=== PATIENT | male | born 1955 | race Caucasian/White ===

== ENCOUNTER → 2019-03-30 | Day surgery (SDC) | payer OTHER ==
[2019-03-14 10:06] LABS: BASOPHILS # (AUTO) 0.1 (0.0-0.1); BASOPHILS % 1.1 % (0.0-1.0); EOSINOPHILS # (AUTO) 0.3 (0.0-0.4); EOSINOPHILS % 3.4 % (0.0-6.0); HEMATOCRIT 42.2 % (38.2-49.6); HEMOGLOBIN 14.2 g/dL (14.0-18.0); LYMPHOCYTES # (AUTO) 1.4 (1.0-3.2); LYMPHOCYTES % 19.3 % (18.0-39.1); MEAN CORPUSCULAR HEMOGLOBIN 28.9 pg (28-32); MEAN CORPUSCULAR HGB CONC 33.6 g/dL (31-35); MEAN CORPUSCULAR VOLUME 85.9 fL (81-99); MONOCYTES # (AUTO) 0.7 (0.2-0.8); NEUTROPHILS # (AUTO) 4.8 (2.1-6.9); NEUTROPHILS % 66.4 % (38.7-80.0); PLATELET COUNT 221 x10e3/uL (140-360); RED BLOOD COUNT 4.91 x10e6/uL (4.3-5.7); RED CELL DISTRIBUTION WIDTH 15.2 % (11.7-14.4)
[~2019-03-30] MED LIST: AMLODIPINE BESY10 MG PO; ASPIR 8181 MG PO; ATENOLOL-CHLOR1 EACH PO; ATORVASTATIN CA40 MG PO; CLOPIDOGREL75 MG PO; FENTANYL CITRATE/PF 100MCG/2 ML INJ ONE; GLIPIZIDE-METF1 EAC2 PO; INVOKANA PO; JARDIANCE PO; LISINOPRIL40 MG PO; LOVENOX60 MG/0.6 SC; METFORMIN HCL500 MG PO; METOPROLOL SUCC50 MG PO; MIDAZOLAM HCL 2 MG/2 ML VIAL ONE; NORCO 7.5-3251 EACH PO; PROPOFOL IV EMULSION 10 MG/ML 50 ML VIAL ONE
--- OUTSIDE RECORDS SUMMARY | 2019-03-30 08:26 | XMS REPORT | Encounter Summary ---
Author Organization Unknown Address [address] [place] [address] Phone [phone] Care Team Providers Care Theatre Director Name Role Phone Dr. Kareem Park 3 [phone] Fernando Mccray MD 82 [phone] Patrick Macias MD 107 [phone] Ale Moreno OD 111 [phone] Reason for Visit Diabetes mellitus; Hypertensive disorder; Hyperlipidemia Instructions 1. Essential hypertension amlodipine 5 mg tablet lisinopril 40 mg tablet metoprolol succinate ER 50 mg tablet,extended release 24 hr CMP, serum or plasma 2. Type 2 diabetes mellitus Jardiance 10 mg tablet metformin 500 mg tablet HbA1c (hemoglobin A1c), blood 3. Hyperlipidemia atorvastatin 40 mg tablet high cholesterol: care instructions lipid panel, serum 4. Hepatitis C screening hepatitis C virus RNA, quant, PCR, serum or plasma 5. Morbid obesity Discussion Note: None recorded. Plan of Care Reminders Provider Appointments Return to Office on or around 06/18/2019 Kareem Kam MD Lab Hepatitis C Virus RNA, Quant, PCR, Serum or Plasma 12/15/2018 [facility] CMP, Serum or Plasma 12/15/2018 [facility] HbA1C (Hemoglobin a1C), Blood 12/15/2018 [facility] Lipid Panel, Serum 12/15/2018 [facility] Referral None recorded. Procedures None recorded. Surgeries None recorded. Imaging None recorded. Medications Name Start Date amlodipine 5 mg tablet Take 1 tablet twice a day by oral route as directed for 90 days. aspirin 81 mg tablet,delayed release Take 1 tablet every day by oral route. atorvastatin 40 mg tablet TAKE ONE (1) TABLET(S) BY MOUTH EVERY DAY. clopidogrel 75 mg tablet Take 1 tablet every day by oral route. clotrimazole-betamethasone 1 %-0.05 % topical cream APPLY TO THE AFFECTED AND SURROUNDING AREAS OF SKIN BY TOPICAL ROUTE 2 TIMES PER DAY IN THE MORNING AND EVENING FOR 2 WEEKS Jardiance 10 mg tablet TAKE ONE (1) TABLET(S) BY MOUTH ONCE A DAY DIRECTED. lisinopril 40 mg tablet TAKE ONE (1) TABLET(S) BY MOUTH TWICE A DAY. metformin 500 mg tablet TAKE ONE (1) TABLET(S) BY MOUTH TWICE A DAY. metoprolol succinate ER 50 mg tablet,extended release 24 hr TAKE ONE TABLET BY MOUTH ONCE A DAY metronidazole 1 % topical gel qd OneTouch Delica Lancets 33 gauge use twice daily OneTouch Ultra Blue Test Strip use twice daily Medications Administered None recorded. Vitals Height Weight BMI Blood Pressure 5 ft 7 in 279.2 lbs 43.7 kg/m2 (1) 146/72 mm[Hg] (2) 138/72 mm[Hg] Lab Results None recorded. Allergies Code Code System Name Reaction Severity Status Onset NKDA Problems Name Status Onset Date Source Coronary Arteriosclerosis Active 08/12/2016 Stented Coronary Artery Active 09/08/2017 Gout Active 12/15/2018 Diabetes Mellitus Active Hyperlipidemia Active Hypertensive Disorder Active Procedures Date Name Performed by 06/07/2015 Orthopedic Surgery Information not available 06/07/2014 Knee Replacement Information not available Cholecystectomy (Gall Bladder Removal) Information not available Colonoscopy Information not available Vaccine List Vaccine Type Influenza, injectable, MDCK, quadrivalent 02/11/20170.5 mL influenza, injectable, quadrivalent, preservative free 03/10/20180.5 mL influenza, seasonal, injectable 05/04/20160.5 mL influenza, unspecified formulation 06/07/2014 pneumococcal polysaccharide PPV23 06/09/20170.5 mL Tdap 09/06/2015 zoster 06/09/20170.65 mL zoster subunit 06/10/20180.5 mL Social History Smoking Status Former Smoker (1/2 PPD) Past Encounters 12/15/2018 Essential Hypertension; Type 2 Diabetes Mellitus; Hyperlipidemia; Hepatitis C Screening; Morbid Obesity Kareem Kam MD: [address] [place] [id number], Ph. History of Present Illness Note:F/u on chronic conditions. Needs refills. Compliant with meds. Non compliant with diet or exercise. Glucose readings at home 80s-130s fasting. BPs at home 140s/70s. No side effects with meds. No new concerns. Review of Systems Comprehensive General Adult ROS Reported By: Patient Constitutional: Constitutional: no fever Eyes: Eyes: no vision change ENMT: Ears: no ear pain. Nose: no sinus problems. Mouth/Throat: no sore throat Cardiovascular: Cardiovascular: no chest pain, no palpitations, no lightheadedness Respiratory: Respiratory: no cough, no wheezing, no shortness of breath Gastrointestinal: Gastrointestinal: no abdominal pain, no nausea, no vomiting, no constipation, no diarrhea Musculoskeletal: Musculoskeletal: no muscle aches, no swelling in the extremities Integumentary: Skin: no rashes Neurologic: Neurologic: no loss of consciousness, no headaches Psychiatric: Psych: no depression, no alcohol abuse, no anxiety, no suicidal thoughts Endocrine: Endocrine: no fatigue Physical Exam General Adult Exam (male) Reported By: Patient Constitutional: General Appearance: healthy-appearing, morbidly obese. Level of Distress: NAD. Ambulation: ambulating normally Psychiatric: Insight: good judgement. Mental Status: active and alert, normal mood, normal affect. Orientation: to time, to place, to person. Memory: recent memory normal, remote memory normal Eyes: Lids and Conjunctivae: non-injected, no discharge. EOM: EOMI ENMT: Ears: TMs clear. Nose: no sinus tenderness. Lips, Teeth, and Gums: no mouth or lip ulcers. Oropharynx: moist mucous membranes Neck: Neck: supple, trachea midline. Thyroid: no enlargement, non-tender Lungs: Auscultation: breath sounds normal Cardiovascular: Heart Auscultation: RRR, normal S1, normal S2, no murmurs. Neck vessels: no carotid bruits Abdomen: Inspection and Palpation: soft, non-distended, no tenderness, no guarding Musculoskeletal:: Motor Strength and Tone: normal, normal tone. Joints, Bones, and Muscles: normal movement of all extremities. Extremities: no edema Neurologic: Gait and Station: normal gait Skin: Inspection and palpation: no rash, no lesions
--- OUTSIDE RECORDS SUMMARY | 2019-03-30 08:26 | XMS REPORT | Encounter Summary ---
Author Organization Unknown Address [address] [place] [address] Phone [phone] Care Team Providers Care Outpatient Scheduler Name Role Phone Dr. Kareem Park 3 [phone] Fernando Mccray MD 82 [phone] Patrick Macias MD 107 [phone] Ale Moreno OD 111 [phone] Reason for Visit other - see typed reason; skin problem/rash Instructions 1. Balanitis clotrimazole-betamethasone 1 %-0.05 % topical cream Diflucan 150 mg tablet 2. Pain of toe of right foot indomethacin 25 mg capsule XR, foot, 2 view Discussion Note: None recorded. Patient educational handouts: No information available. Plan of Care Reminders Provider Appointments Est Patient 12/09/2018 8:00AM Kareem Kam MD Lab None recorded. Referral None recorded. Procedures None recorded. Surgeries None recorded. Imaging XR, Foot, 2 View 10/18/2018 [facility] [place] Medications Name Start Date amlodipine 5 mg [...] THE MORNING AND EVENING FOR 2 WEEKS Diflucan 150 mg tablet take 1 tablet today and another one in 4 days indomethacin 25 mg capsule Take 1 capsule every 8 hours by oral route as needed for 14 days. Jardiance 10 mg tablet TAKE ONE (1) [...] BMI Blood Pressure 5 ft 7 in 280.8 lbs 44 kg/m2 (1) 148/70 mm[Hg] (2) 138/70 mm[Hg] Lab Results None recorded. Allergies Code Code System Name Reaction Severity Status Onset NKDA Problems Name Status Onset Date Source Coronary Arteriosclerosis Active 08/12/2016 Stented Coronary Artery Active 09/08/2017 Diabetes Mellitus Active Hyperlipidemia Active Hypertensive Disorder Active Procedures Date Name Performed by 06/07/2015 Orthopedic Surgery Information not available 06/07/2014 Knee Replacement Information not available 01/18/2010 Colonoscopy Information not available Cholecystectomy (Gall Bladder Removal) Information not available 10/18/2018 XR, Foot, 2 View [facility] [place] [address] [place] [address] (Work Place) Vaccine List Vaccine Type Influenza, injectable, MDCK, quadrivalent 02/11/20170.5 mL influenza, injectable, quadrivalent, preservative free 03/10/20180.5 mL influenza, seasonal, injectable 05/04/20160.5 mL influenza, unspecified formulation 06/07/2014 pneumococcal polysaccharide PPV23 06/09/20170.5 mL Tdap 09/06/2015 zoster 06/09/20170.65 mL zoster subunit 06/10/20180.5 mL Social History Smoking Status Former Smoker (1/2 PPD) Past Encounters 10/18/2018 Balanitis; Pain of Toe of Right Foot Kareem Burt Kam MD: [address] [place] [address], Ph. History of Present Illness Note:Complaining of erythematous rash in the penis since a few days ago. Pt is taking jardiance and took medrol dose gamaliel 1 and 1/2 months ago.<div>Pain in the R great toe since 1 week ago. Denies erythema, warmth or swelling. Last uric acid 4.7 (09/23).</div> Review of Systems Comprehensive General Adult ROS Reported By: Patient Constitutional: Constitutional: no fever Eyes: Eyes: no vision change Cardiovascular: Cardiovascular: no chest pain, no palpitations, no lightheadedness Respiratory: Respiratory: no cough, no wheezing, no shortness of breath Gastrointestinal: Gastrointestinal: no abdominal pain, no nausea, no vomiting, no constipation, no diarrhea Musculoskeletal: Musculoskeletal: no muscle aches, no swelling in the extremities Integumentary: Skin: rash Neurologic: Neurologic: no loss of consciousness, no headaches Endocrine: Endocrine: no fatigue Physical Exam General Adult Exam (male) Reported By: Patient Constitutional: General Appearance: healthy-appearing, morbidly obese. Level of Distress: NAD. Ambulation: ambulating normally Psychiatric: Insight: good judgement. Mental Status: active and alert, normal mood, normal affect. Orientation: to time, to place, to person. Memory: recent memory normal, remote memory normal Eyes: Lids and Conjunctivae: non-injected, no discharge Neck: Neck: supple, trachea midline Lungs: Auscultation: breath sounds normal Cardiovascular: Heart Auscultation: RRR, normal S1, normal S2, no murmurs. Neck vessels: no carotid bruits Male : Penis: abnormal foreskin; erythema in the glans. Scrotum: no swelling, no tenderness. Testes: palpable bilaterally, not enlarged Musculoskeletal:: Joints, Bones, and Muscles: normal movement of all extremities. Extremities: no edema Neurologic: Gait and Station: normal gait
--- OUTSIDE RECORDS SUMMARY | 2019-03-30 08:26 | XMS REPORT | Encounter Summary ---
Author Organization Unknown Address [address] [place] [address] Phone [phone] Care Team Providers Care Roustabout Crew Pusher Name Role Phone Dr. Kareem Park 3 [phone] Fernando Mccray MD 82 [phone] Patrick Macias MD 107 [phone] Ael Moreno OD 111 [phone] Reason for Visit other - see typed [...] recorded. Imaging XR, Foot, 2 View 10/18/2018 [facility] [place] Medications Name Start Date amlodipine 5 mg [...] not available 10/18/2018 XR, Foot, 2 View [facility] [place] [facility] [address] [place] [address] (Work Place) Vaccine List Vaccine [...] of Right Foot Kareem Burt Kam MD: [address] [place] [address], Ph. History of Present Illness Note:Complaining of erythematous rash in the penis since a few days ago. Pt is taking jardiance and took medrol dose gamaliel 1 and 1/2 months ago.<div>Pain in the R great toe since 1 week. Denies erythema, warmth or swelling. Last uric [...]
--- OUTSIDE RECORDS SUMMARY | 2019-03-30 08:26 | XMS REPORT | Summary of Care ---
Author Author Gracy Reilly R.N. Unknown Address Unknown Phone Unavailable Care Team Providers Care Probe Operator Name Role Phone SANDRINE Perkins, ALEKSEY Unavailable Unavailable Gracy Reilly R.N. Unavailable Unavailable CALDERON HEWITT MS, STEFANIE IGLESIAS Unavailable Unavailable ALEKSEY DELUCA MD Unavailable Unavailable VERONICA TO MD Unavailable Unavailable Unavailable Unavailable Functional Status Name Dates Details Functional status health issues are not documented Status: Name Dates Details Cognitive status health issues are not documented Status: Problems Name Dates Details Essential hypertension (401.9, I10) Status: Active CAD S/P percutaneous coronary angioplasty (414.01, I25.10) Status: Active H/O heart artery stent (V45.82, Z95.5) Status: Active Mixed hyperlipidemia (272.2, E78.2) Status: Active Type 2 diabetes mellitus (250.00, E11.9) Status: Active Obesity, morbid, BMI 40.0-49.9 (278.01, E66.01) Status: Active Encounter for diabetic foot exam (250.00, E11.9) Status: Active Gout (274.9, M10.9) Status: Active Hearing loss (389.9, H91.90) Status: Active Ringing in ear (388.30, H93.19) Status: Active Medications Name Dates Details Jardiance 10 MG Oral Tablet TAKE 1 TABLET BY MOUTH ONCE DAILY Active metFORMIN HCl - 500 MG Oral Tablet 1 tab in the am and 2 tabs in the pm * Refills: 0 Active Atorvastatin Calcium 40 MG Oral Tablet TAKE 1 TABLET AT BEDTIME. * Quantity: 30 Refills: 0 Active Lisinopril 40 MG Oral Tablet TAKE 1 TABLET BY MOUTH EVERY DAY * Quantity: 30 Refills: 2 Active Clopidogrel Bisulfate 75 MG Oral Tablet TAKE 1 TABLET BY MOUTH EVERY DAY * Quantity: 30 Refills: 0 Active amLODIPine Besylate 5 MG Oral Tablet TAKE 1 TABLET BY MOUTH EVERY DAY * Quantity: 30 Refills: 0 Active Aspirin 81 MG Oral Tablet Delayed Release TAKE 1 TABLET DAILY. * Refills: 0 Active Metoprolol Succinate ER 50 MG Oral Tablet Extended Release 24 Hour TAKE 1 TABLET BY MOUTH EVERY DAY * Quantity: 30 Refills: 0 SATTAR M.D., ALEKSEY * Start : 02-Feb-2019 Active Blood Glucose Monitor System w/Device Kit USE DIRECTED. dx code: E11.9 * Quantity: 1 Refills: 0 SATTAR M.D., ALEKSEY * Start : 02-Feb-2019 Active Blood Glucose Test In Vitro Strip CHECK BLOOD SUGAR ONCE A DAY DIRECTED Dx code: E11.9 * Quantity: 1 Refills: 0 SATTAR M.D., ALEKSEY * Start : 02-Feb-2019 Active 100 Strip Bottle Lancets TEST ONCE DAILY DIRECTED dx code: E11.9 * Quantity: 1 Refills: 0 SATTAR M.D., ALEKSEY * Start : 02-Feb-2019 Active 100 Unit Box Allergies and Adverse Reactions Name Dates Details No Known Drug Allergies (Allergy) Status: Active Past Medical History Name Dates Details Essential hypertension (401.9, I10) Status: Active Procedures Procedure Dates Details [QLH] MICROALBUMIN, RANDOM URINE (W/CREATININE) Date: 02-Feb-2019 [QLH] CBC (INCLUDES DIFF/PLT) Date: 02-Feb-2019 [QLH] CMP W/EGFR Date: 02-Feb-2019 History of Cath Stent Placement Completed History of Gallbladder Surgery Completed History of Total Knee Replacement Right Completed History of Vasectomy Completed Immunization Name Dates Details Tdap on: 06-Feb-2016 Shingrix 50 MCG Intramuscular Suspension Reconstituted on: 07-Mar-2018 Shingrix 50 MCG Intramuscular Suspension Reconstituted on: Jun-2018 Pneumococcal polysaccharide vaccine, 23 valent on: Jun-2018 Family History Name Dates Details Family history of diabetes mellitus (V18.0, Z83.3) Status: Active Family history of hypertension (V17.49, Z82.49) Status: Active Name Dates Details Family history of lung cancer (V16.1, Z80.1) Status: Active Family history of asthma (V17.5, Z82.5) Status: Active Social History Name Dates Details - Status: Name Dates Details Current some day smoker Vital Signs Date Test Result Details [id number] BP Systolic 143 mm[Hg] Status: Comments: Location: LUE; Position: Sitting BP Diastolic 72 mm[Hg] Status: Comments: Location: LUE; Position: Sitting Height 67 in Status: Weight 270.0625 lb Status: Body Mass Index Calculated 42.3 kg/m2 Status: Body Surface Area Calculated 2.3 m2 Status: Heart Rate 67 /min Status: Respiration Rate 16 /min Status: Results Date Description Value Details :17 [[facility]] CMP W/EGFR Glucose 140 mg/dL (Above high threshold) Range: 65-99 BUN 18 mg/dL Range: 8-27 Creatinine 1.00 mg/dL Range: 0.76-1.27 eGFR If NonAfricn Am 80 mL/min/1.7 Range: >59 eGFR If Africn Am 93 mL/min/1.7 Range: >59 BUN/Creatinine Ratio 18 Range: 10-24 Sodium, Serum 136 mmol/L Range: 134-144 Potassium 4.4 mmol/L Range: 3.5-5.2 Chloride 98 mmol/L Range: 96-106 Carbon Dioxide, Total 20 mmol/L Range: 20-29 Calcium, Serum 9.8 mg/dL Range: 8.6-10.2 Protein, Total 7.1 g/dL Range: 6.0-8.5 Albumin 4.5 g/dL Range: 3.6-4.8 Globalulin, Total 2.6 g/dL Range: 1.5-4.5 A/G Ratio 1.7 Range: 1.2-2.2 Bilirubin, Total 0.8 mg/dL Range: 0.0-1.2 Alkaline Phosphatase 101 {IU/L} Range: 39-117 AST (SGOT) 25 {IU/L} Range: 0-40 ALT (SGPT) 22 {IU/L} Range: 0-44 :17 [[facility]] CBC (INCLUDES DIFF/PLT) WBC 7.4 {x10E3/uL} Range: 3.4-10.8 RBC 5.45 {x10E6/uL} Range: 4.14-5.80 Hemoglobin 15.8 g/dL Range: 13.0-17.7 Hematocrit 45.5 % Range: 37.5-51.0 MCV 84 fL Range: 79-97 MCH 29.0 pg Range: 26.6-33.0 MCHC 34.7 g/dL Range: 31.5-35.7 RDW 15.1 % Range: 12.3-15.4 Platelets 231 {x10E3/uL} Range: 150-450 Neutrophils 67 % Range: Not Estab. Lymphs 21 % Range: Not Estab. Monocytes 9 % Range: Not Estab. Eos 2 % Range: Not Estab. Basos 1 % Range: Not Estab. Immature Cells Neutrophils (Absolute) 4.9 {x10E3/uL} Range: 1.4-7.0 Lymphs (Absolute) 1.6 {x10E3/uL} Range: 0.7-3.1 Monocytes(Absolute) 0.7 {x10E3/uL} Range: 0.1-0.9 Eos (Absolute) 0.2 {x10E3/uL} Range: 0.0-0.4 Baso (Absolute) 0.1 {x10E3/uL} Range: 0.0-0.2 Immature Granulocytes 0 % Range: Not Estab. Immature Grans (Abs) 0.0 {x10E3/uL} Range: 0.0-0.1 NR Hematology Comments: 08-Feb-20198:17 [[facility]] MICROALBUMIN, RANDOM URINE (W/CREATININE) Creatinine, Urine 18.2 mg/dL Range: Not Estab. Microalbumin, Urine 5.3 ug/mL Range: Not Estab. Microalb/Creat Ratio 29.1 {mg/g_creat} Range: 0.0-30.0 Comments: Normal: 0.0 - 30.0 Albuminuria: 31.0 - 300.0 Clinical albuminuria: >300.0 08-Feb-20198:17 [[facility]] TSH, 3RD GENERATION W/REFLEX TO FT4 TSH 2.510 {uIU/mL} Range: 0.450-4.500 Plan of Care Name Dates Details Planned Observations Planned Goals not documented Planned Encounters Appointment; ALEKSEY DELUCA M.D. On: 21-Mar-2019 9:15 Appointment; KOLTON FELIX On: 27-Mar-2019 15:30 Appointment; VERONICA TO M.D. On: 04-Apr-2019 8:15 Instructions Name Dates Details Instructions not documented Encounters Appointment; ALEKSEY DELUCA M.D. Encounter Diagnosis: Problem not documented On: 02-Feb-2019 15:00 Appointment; VERONICA TO M.D. Encounter Diagnosis: Problem not documented On: 09-Mar-2019 13:15
--- OUTSIDE RECORDS SUMMARY | 2019-03-30 08:26 | XMS REPORT | Encounter Summary ---
Author Organization Unknown Address [address] [place] [address] Phone [phone] Care Team Providers Care Horse Racer Name Role Phone Dr. Kareem Park 3 [phone] Fernando Mccray MD 82 [phone] Patrick Macias MD 107 [phone] Ale Moreno OD 111 [phone] Reason for Visit other - see typed reason Instructions 1. Body mass index 40+ - severely obese body mass index: care instructions learning about healthy weight 2. Gout uric acid, serum or plasma colchicine 0.6 mg tablet Medrol (Rolando) 4 mg tablets in a dose pack dexamethasone 4 mg/mL injection solution Discussion Note: None recorded. Plan of Care Patient Goals meds as directed ,consider prophylactic meds,rtc 2 weeks Reminders Provider Appointments Return to Office on or around 09/22/2018 Dino Zavala MD Return to Office on or around 12/07/2018 Kareem Kam MD Est Patient 12/09/2018 8:00AM Kareem Kam MD Lab Uric Acid, Serum or Plasma 09/08/2018 [facility] Laboratory Referral None recorded. Procedures None recorded. [...] 1 tablet every day by oral route. colchicine 0.6 mg tablet Take 1 tablet twice a day by oral route. Jardiance 10 mg tablet TAKE ONE (1) TABLET(S) BY MOUTH ONCE A DAY DIRECTED. lisinopril 40 mg tablet TAKE ONE (1) TABLET(S) BY MOUTH TWICE A DAY. Medrol (Rolando) 4 mg tablets in a dose pack as directed metformin 500 mg tablet TAKE ONE (1) [...] BMI Blood Pressure 5 ft 7 in 282.4 lbs 44.2 kg/m2 (1) 148/70 mm[Hg] (2) 144/72 mm[Hg] Lab Results None recorded. Allergies Code [...] Cholecystectomy (Gall Bladder Removal) Information not available Vaccine List Vaccine Type Influenza, injectable, MDCK, quadrivalent 02/11/20170.5 mL influenza, injectable, quadrivalent, preservative free 03/10/20180.5 mL influenza, seasonal, injectable 05/04/20160.5 mL influenza, unspecified formulation 06/07/2014 pneumococcal polysaccharide PPV23 06/09/20170.5 mL Tdap 09/06/2015 zoster 06/09/20170.65 mL zoster subunit 06/10/20180.5 mL Social History Smoking Status Former Smoker (1/2 PPD) Past Encounters 09/08/2018 Body Mass Index 40+ - Severely Obese; Gout Dino Zavala MD: [address] [place] [address], Ph. History of Present Illness Note:3 d h/o recurrence gout L hallux,last episode 4 months ago Review of Systems:ROS as noted in the HPI Review of Systems None recorded. Physical Exam Musculoskeletal and Joint Exam Reported By: Patient Musculoskeletal System: Left Foot: reduced ROM, swelling, tenderness at:1 mt-p jt, erythema, warmth, pain on palpation
--- OUTSIDE RECORDS SUMMARY | 2019-03-30 08:26 | XMS REPORT ---
Author Organization Unknown Address [address] [place] [address] Phone [phone] Care Team Providers Care Jumpbasting Facing Baster Name Role Phone DANGELO ELLISON MD 82 [phone] VISHNU MACIAS MD 107 [phone] Allergies Code Code System Name Reaction Severity Status Onset NKDA Medications Name Status Start Date Stop Date acetaminophen 300 mg-codeine 30 mg tablet Completed 01/24/2016 amlodipine 2.5 mg tablet Completed 09/08/2017 amlodipine 5 mg tablet Take 1 tablet twice a day by oral route as directed for 90 days. Active Not available amoxicillin 875 mg-potassium clavulanate 125 mg tablet Completed 05/04/2016 aspirin 81 mg tablet,delayed release Take 1 tablet every day by oral route. Active Not available atenolol 100 mg tablet TAKE ONE (1) TABLET(S) BY MOUTH DAILY Completed 06/09/2017 atenolol 100 mg-chlorthalidone 25 mg tablet Active Not available atorvastatin 40 mg tablet Take 1 tablet every day by oral route. Active Not available otjmctxycpkvjzz-otigfpsanpbyxdh-IV 2 mg-30 mg-10 mg/5 mL syrup Completed 05/04/2016 clopidogrel 75 mg tablet Active Not available dermacinrx kit combopak Completed 01/24/2016 enoxaparin 80 mg/0.8 mL subcutaneous syringe Completed 01/24/2016 fluticasone 50 mcg/actuation nasal spray,suspension Completed 05/04/2016 glipizide 5 mg-metformin 500 mg tablet Take 1 tablet twice a day by oral route. Completed 08/12/2016 hydrocodone 7.5 mg-acetaminophen 325 mg tablet Completed 01/24/2016 Invokana 300 mg tablet TAKE ONE (1) TABLET(S) BY MOUTH ONCE A DAY. Active Not available lisinopril 40 mg tablet Take 1 tablet twice a day by oral route. Active Not available Lyrica 50 mg capsule Completed 06/09/2017 metformin 500 mg tablet TAKE ONE (1) TABLET(S) BY MOUTH TWICE A DAY. Active Not available metoprolol succinate ER 100 mg tablet,extended release 24 hr TAKE ONE (1) TABLET(S) BY MOUTH ONCE A DAY. Completed 06/09/2017 OneTouch Delica Lancets 33 gauge use twice daily Active Not available OneTouch Ultra Blue Test Strip Active Not available sulfamethoxazole 800 mg-trimethoprim 160 mg tablet Active Not available tizanidine 4 mg tablet Completed 06/09/2017 Toprol XL 50 mg tablet,extended release TAKE ONE TABLET BY MOUTH ONCE A DAY Active Not available tramadol 50 mg tablet Completed 06/09/2017 Problems Name Status Onset Date Source Coronary Arteriosclerosis Active 08/12/2016 Stented Coronary Artery Active 09/08/2017 Diabetes Mellitus Active Hyperlipidemia Active Hypertensive Disorder Active Procedures Date Name Performed by 06/07/2015 Orthopedic Surgery Information not available 01/18/2010 Colonoscopy Notes: Dr.Steven Macias Findings:benign 2cm sessile polyp in the sigmoid colon.benign 2-4mm polyps in the rectum. Information not available 05/04/2016 Electrocardiogram [facility] [address] [place] [id number] ([facility]) 02/11/2017 Electrocardiogram [facility] [address] [place] [address] ([address]) Notes: KNEE REPLACEMENT:2014 HEART STENT:2014 GALLBLADDER REMOVAL:UNK KNE REPAIR:UNK Lab Results Date Name Specimen Result Interpretation Description Value Range Status Address 06/09/2017 CMP, Serum or Plasma Alt 24 U/L 0-55 U/L Final [facility]: [address] [address], [employer] Ast 23 U/L 5-34 U/L Final [facility]: [address] [address], [employer] Bun 17.0 mg/dL 8.4-25.7 mg/dL Final [facility]: [address] [address], [employer] Alk Phos 88 unit/L 40-150 unit/L Final [facility]: [address] [place] [address], [employer] High Glucose 119 mg/dL 70-99 mg/dL Final [facility]: [address] [address], [employer] Albumin 3.9 g/dL 3.5-5.0 g/dL Final [facility]: [address] Creatinine 0.82 mg/dL 0.72-1.25 mg/dL Final [facility]: [address] eGFR Non- >60 mL/min/1.73m2 >60 mL/min/1.73m2 Final [facility]: [address] Total Bilirubin 0.6 mg/dL 0.2-1.2 mg/dL Final [facility]: [address] eGFR - >60 mL/min/1.73m2 >60 mL/min/1.73m2 Final [facility]: [address] [facility] Sodium 142 mEq/L 136-145 mEq/L Final [facility]: [address] Potassium 4.4 mEq/L 3.5-5.1 mEq/L Final [facility]: [address] Chloride 105 mmol/L 98-107 mmol/L Final [facility]: [address] Total Protein 7.0 g/dL 6.4-8.3 g/dL Final [facility]: [address] Calcium 9.1 mg/dL 8.8-10.0 mg/dL Final [facility]: [address] Co2 28.4 mmol/L 23.0-31.0 mmol/L Final [facility]: [address] Anion Gap 9 calc Final [facility]: [address] [facility] 06/09/2017 Lipid Panel, Serum Hdl 59 mg/dL 40-60 mg/dL Final [facility]: [address] Triglyceride 60 mg/dL 0-149 mg/dL Final [facility]: [address] VLDL Calc. 12 mg/dL Final [facility]: [address] cholesterol/HDL Ratio 2.4 mg/dL Final [facility]: [address] non-HDL Cholesterol Calc. 82 mg/dL 0-160 mg/dL Final [facility]: [address] [place] [address] Cholesterol 141 mg/dL 0-199 mg/dL Final [facility]: [address] LDL Calc. 70 mg/dL 0-130 mg/dL Final [facility]: [address] [place] [address] 06/09/2017 HbA1C (Hemoglobin a1C), Blood A1C W/eag 5.5 % 1.0-5.7 % Final [facility]: [address] [place] [address] Average Blood Glucose 111 mg/dL Final [facility]: [address] [place] [address] 02/09/2017 HbA1C (Hemoglobin a1C), Blood Hemoglobin a1C 5.2 % 4.8- 5.6 % Final [facility]: [address] [place] [address] Estim. Avg Glu (EAG) 103 mg/dL Final [facility]: [address] [place] [address] 02/09/2017 Lipid Panel, Serum Cholesterol, Total 115 mg/dL 100-199 mg/dL Final [facility]: [address] [place] [address] Triglycerides 58 mg/dL 0-149 mg/dL Final [facility]: [address] [place] [address] HDL Cholesterol 61 mg/dL >39 mg/dL Final [facility]: [address] [place] [address] VLDL Cholesterol Waqas 12 mg/dL 5-40 mg/dL Final [facility]: [address] [place] [address] LDL Cholesterol Calc 42 mg/dL 0-99 mg/dL Final [facility]: [address] [place] [address] 02/09/2017 PSA, Serum or Plasma Prostate Specific Ag, Serum 0.8 NG/mL 0.0-4.0 NG/mL Final [facility]: [address] [place] [address] 02/09/2017 CMP, Serum or Plasma High Glucose, Serum 113 mg/dL 65-99 mg/dL Final [facility]: [address] [place] [address] Bun 15 mg/dL 8-27 mg/dL Final [facility]: [address] [place] [address] Creatinine, Serum 0.92 mg/dL 0.76-1.27 mg/dL Final [facility]: [address] [place] [address], [employer] eGFR If Nonafricn AM 90 mL/min/1.73 >59 mL/min/1.73 Final [facility]: [address], [employer] eGFR If Africn AM 104 mL/min/1.73 >59 mL/min/1.73 Final [facility]: [address], [employer] BUN/creatinine Ratio 16 10-24 Final [facility]: [address], [employer] Sodium, Serum 141 mmol/L 134-144 mmol/L Final [facility]: [address], [employer] Potassium, Serum 4.3 mmol/L 3.5-5.2 mmol/L Final [facility]: [address], [employer] Chloride, Serum 99 mmol/L 96-106 mmol/L Final [facility]: [address], [employer] Carbon Dioxide, Total 28 mmol/L 18-29 mmol/L Final [facility]: [address], [employer] Calcium, Serum 9.4 mg/dL 8.6-10.2 mg/dL Final [facility]: [address], [employer] Protein, Total, Serum 6.6 g/dL 6.0-8.5 g/dL Final [facility]: [address], [employer] Albumin, Serum 4.5 g/dL 3.6-4.8 g/dL Final [facility]: [address], [employer] Globulin, Total 2.1 g/dL 1.5-4.5 g/dL Final [facility]: [address] [employer] A/g Ratio 2.1 1.2-2.2 Final [facility]: [address], [employer] Bilirubin, Total 1.1 mg/dL 0.0-1.2 mg/dL Final [facility]: [address], [employer] Alkaline Phosphatase, S 70 IU/L 39-117 IU/L Final [facility]: [address], [employer] Ast (Sgot) 24 IU/L 0-40 IU/L Final [facility]: [address] [employer] Alt (Sgpt) 21 IU/L 0-44 IU/L Final [facility]: [address] Reuben Plunkett 11/16/2016 CMP, Serum or Plasma Glucose, Serum 99 mg/dL 65-99 mg/dL Final [facility]: [address] [place] Bun 16 mg/dL 8-27 mg/dL Final [facility]: [address] [employer] Low Creatinine, Serum 0.69 mg/dL 0.76-1.27 mg/dL Final [facility]: [address] [employer] eGFR If Nonafricn AM 103 mL/min/1.73 >59 mL/min/1.73 Final [facility]: [address] [employer] eGFR If Africn AM 119 mL/min/1.73 >59 mL/min/1.73 Final [facility]: [address] [employer] BUN/creatinine Ratio 23 10-24 Final [facility]: [address] [employer] Low Sodium, Serum 133 mmol/L 134-144 mmol/L Final [facility]: [address] [employer] Potassium, Serum 3.9 mmol/L 3.5-5.2 mmol/L Final [facility]: [address] [employer] Chloride, Serum 98 mmol/L 96-106 mmol/L Final [facility]: [address] [employer] Carbon Dioxide, Total 20 mmol/L 18-29 mmol/L Final [facility]: [address] [employer] Low Calcium, Serum 7.8 mg/dL 8.6-10.2 mg/dL Final [facility]: [address] [employer] Low Protein, Total, Serum 5.4 g/dL 6.0-8.5 g/dL Final [facility]: [address] [employer] Albumin, Serum 3.7 g/dL 3.6-4.8 g/dL Final [facility]: [address] [employer] Globulin, Total 1.7 g/dL 1.5-4.5 g/dL Final [facility]: [address] A/g Ratio 2.2 1.2-2.2 Final [facility]: [address] Bilirubin, Total 0.5 mg/dL 0.0-1.2 mg/dL Final [facility] [address] [facility] [address] Alkaline Phosphatase, S 55 IU/L 39-117 IU/L Final [facility]: [address] Ast (Sgot) 17 IU/L 0-40 IU/L Final [facility]: [address] Alt (Sgpt) 14 IU/L 0-44 IU/L Final [facility]: [address] [place] [address], [employer] 11/12/2016 Lipid Panel, Serum Hdl 41 mg/dL 40-60 mg/dL Final [facility]: [address] Triglyceride 32 mg/dL 0-149 mg/dL Final [facility]: [address] VLDL Calc. 6 mg/dL Final [facility]: [address] cholesterol/HDL Ratio 2 mg/dL Final [facility]: [address] non-HDL Cholesterol Calc. 58 mg/dL 0-160 mg/dL Final [facility]: [address] Cholesterol 99 mg/dL 0-199 mg/dL Final [facility]: [address] LDL Calc. 52 mg/dL 0-130 mg/dL Final [facility]: [address] 11/12/2016 HbA1C (Hemoglobin a1C), Blood A1C W/eag 4.8 % 1.0-5.7 % Final [facility]: [address] Average Blood Glucose 91 mg/dL Final [facility]: [address] 08/11/2016 CMP, Serum or Plasma Low Glucose, Serum 57 mg/dL 65-99 mg/dL Final [facility]: [address] Bun 24 mg/dL 6-24 mg/dL Final [facility]: [address] Creatinine, Serum 0.85 mg/dL 0.76-1.27 mg/dL Final [facility]: [address] Peña [facility], [employer] eGFR If Nonafricn AM 95 mL/min/1.73 >59 mL/min/1.73 Final [facility]: [address], [employer] eGFR If Africn AM 110 mL/min/1.73 >59 mL/min/1.73 Final [facility]: [address] Casey [facility], [employer] High BUN/creatinine Ratio 28 9-20 Final [facility]: [address] Casey [facility], [employer] Sodium, Serum 142 mmol/L 134-144 mmol/L Final [facility]: [address] [place] [address], [employer] Potassium, Serum 4.3 mmol/L 3.5-5.2 mmol/L Final [facility]: [address] Casey [facility], [employer] Chloride, Serum 101 mmol/L 96-106 mmol/L Final [facility]: [address] Casey [address] [place] [address] Carbon Dioxide, Total 19 mmol/L 18-29 mmol/L Final [facility]: [address] [place] [address], [employer] Calcium, Serum 9.2 mg/dL 8.7-10.2 mg/dL Final [facility]: [address] Casey [address] [place] [address] Protein, Total, Serum 6.5 g/dL 6.0-8.5 g/dL Final [facility]: [address] [place] [address], [employer] Albumin, Serum 4.2 g/dL 3.5-5.5 g/dL Final [facility]: [address] [place] [address], [employer] Globulin, Total 2.3 g/dL 1.5-4.5 g/dL Final [facility]: [address] A/g Ratio 1.8 1.1-2.5 Final [facility]: [address] [place] [address], [employer] Bilirubin, Total 0.6 mg/dL 0.0-1.2 mg/dL Final [facility]: [address] Casey [facility], [employer] Alkaline Phosphatase, S 78 IU/L 39-117 IU/L Final [facility]: [address] Ast (Sgot) 19 IU/L 0-40 IU/L Final [facility]: [address] Alt (Sgpt) 14 IU/L 0-44 IU/L Final [facility]: [address] [facility] 08/11/2016 Lipid Panel, Serum Cholesterol, Total 123 mg/dL 100-199 mg/dL Final [facility]: [address] Triglycerides 48 mg/dL 0-149 mg/dL Final [facility]: [address] HDL Cholesterol 58 mg/dL >39 mg/dL Final [facility]: [address] VLDL Cholesterol Waqas 10 mg/dL 5-40 mg/dL Final [facility]: [address] LDL Cholesterol Calc 55 mg/dL 0-99 mg/dL Final [facility]: [address] [facility] 08/11/2016 CBC W/ Auto Diff Wbc 9.3 x10e3/uL 3.4-10.8 x10e3/uL Final [facility]: [address] Rbc 4.86 x10e6/uL 4.14-5.80 x10e6/uL Final [facility]: [address] [facility] Hemoglobin 14.6 g/dL 12.6-17.7 g/dL Final [facility]: [address] Peña [address] [place] [address] Hematocrit 43.2 % 37.5-51.0 % Final [facility]: [address] Peña [address] [place] [address] Mcv 89 fL 79-97 fL Final [facility]: [address] Mch 30.0 pg 26.6-33.0 pg Final [facility]: [address] Mchc 33.8 g/dL 31.5-35.7 g/dL Final [facility]: [address] Rdw 14.7 % 12.3-15.4 % Final [facility]: [address] Platelets 202 x10e3/uL 150-379 x10e3/uL Final [facility]: [address] Neutrophils 65 % Final [facility]: [address] [address], [employer] Lymphs 21 % Final [facility]: [address] [place] [address], [employer] Monocytes 9 % Final [facility]: [address] [address], [employer] Eos 4 % Final [facility]: [address] [address], [employer] Basos 1 % Final [facility]: [address] [place] [address] Immature Cells comment Cancelled [facility]: [address] Neutrophils (Absolute) 6.1 x10e3/uL 1.4-7.0 x10e3/uL Final [facility]: [address] Lymphs (Absolute) 2.0 x10e3/uL 0.7-3.1 x10e3/uL Final [facility]: [address] [place] [address] Monocytes(absolute) 0.8 x10e3/uL 0.1-0.9 x10e3/uL Final [facility]: [facility] [address] Eos (Absolute) 0.4 x10e3/uL 0.0-0.4 x10e3/uL Final [facility]: [address] Baso (Absolute) 0.1 x10e3/uL 0.0-0.2 x10e3/uL Final [facility]: [facility] [address] Immature Granulocytes 0 % Final [facility]: [facility] [address] Immature Grans (Abs) 0.0 x10e3/uL 0.0-0.1 x10e3/uL Final [facility]: [address] [place] [address] Hematology Comments: comment Cancelled [facility]: [facility] Angela Fwleigha [address] 08/11/2016 HbA1C (Hemoglobin a1C), Blood A1C W/eag 4.8 % 1.0-5.7 % Final [facility]: [address] [place] [address] Average Blood Glucose 91 mg/dL Final [facility]: [address] [place], [place] [address]leigha [address] 08/11/2016 CBC W/ Auto Diff No observation recorded. [facility]: [id number], [employer] 05/04/2016 CMP, Serum or Plasma Alt 16.0 U/L 0.0-55.0 U/L Final [facility]: [address] Peña [address] [place] [address] Ast 20.0 U/L 5.0-34.0 U/L Final [facility]: [address], [employer] Bun 19.0 mg/dL 8.0-26.0 mg/dL Final [facility]: [address] Alk Phos 74.0 unit/L 40.0-150.0 unit/L Final [facility]: [address] Glucose 80.0 mg/dL 70.0-99.0 mg/dL Final [facility]: [address] Albumin 3.7 g/dL 3.5-5.0 g/dL Final [facility]: [address] Creatinine 0.9 mg/dL 0.7-1.3 mg/dL Final [facility]: [address] eGFR Non- >60 mL/min/1.73m2 >60.0 mL/min/1.73m2 Final [facility]: [address] Total Bilirubin 0.7 mg/dL 0.2-1.2 mg/dL Final [facility]: [address] eGFR - >60 mL/min/1.73m2 >60.0 mL/min/1.73m2 Final [facility]: [address] Sodium 142.0 mEq/L 137.0-144.0 mEq/L Final [facility]: [address] Potassium 3.7 mEq/L 3.5-5.0 mEq/L Final [facility]: [address] Chloride 108.0 mmol/L 101.0-110.0 mmol/L Final [facility]: [address] [facility] Low Total Protein 6.1 g/dL 6.4-8.3 g/dL Final [facility]: [address] Peña [address] [place] [address] Calcium 9.2 mg/dL 8.4-10.2 mg/dL Final [facility]: [address] [address], [employer] Co2 28 mmol/L 21-29 mmol/L Final [facility]: [address] [address], [employer] Anion Gap 6.0 calc Final [facility]: [address] [place] [address], [employer] 05/04/2016 Lipid Panel, Serum Hdl 44.0 mg/dL 40.0-60.0 mg/dL Final [facility]: [address] [place] [address], [employer] Triglyceride 57.0 mg/dL 0.0-149.0 mg/dL Final [facility]: [address] [place] [address], [employer] VLDL Calc. 11.4 mg/dL Final [facility]: [address] cholesterol/HDL Ratio 2.5 mg/dL Final [facility]: [address] non-HDL Cholesterol Calc. 67.0 mg/dL 0.0-160.0 mg/dL Final [facility]: [address] Cholesterol 111.0 mg/dL 0.0-199.0 mg/dL Final [facility]: [address] LDL Calc. 55.6 mg/dL 0.0-130.0 mg/dL Final [facility]: [address] [address], [employer] 05/04/2016 HbA1C (Hemoglobin a1C), Blood A1C W/eag 4.6 % 1.0-5.7 % Final [facility]: [address] Average Blood Glucose 85.3 mg/dL Final [facility]: [address] 01/24/2016 CMP, Serum or Plasma No observation recorded. 11/07/2015 CMP, Serum or Plasma No observation recorded. [facility]: [id number], [employer] Electrocardiogram No observation recorded. [facility]: [address], [place] Glucose, Fingerstick, Blood Blood Glucose: mg/dl 96 [facility]: [address], [place] Electrocardiogram No observation recorded. [facility]: [address], [place] Glucose, Fingerstick, Blood Blood Glucose: mg/dl 99 [facility]: [address] [facility] Past Encounters 09/08/2017 Hyperlipidemia; Type 2 Diabetes Mellitus; Essential Hypertension; Body Mass Index 40+ - Severely Obese Kareem Kam MD: [address] [place] [phone], Ph. 06/09/2017 Hyperlipidemia; Essential Hypertension; Type 2 Diabetes Mellitus; Body Mass Index 40+ - Severely Obese; Pneumococcal Vaccination; Immunization Kareem Kam MD: [address] [place] [phone], Ph. 03/09/2017 Lumbago with Sciatica; Lesion of Skin of Face; Body Mass Index 30+ - Obesity Kareem Kam MD: [address] [place] [phone], Ph. 03/02/2017 Lumbago with Sciatica Kareem Kam MD: [address] [place] [phone], Ph. 02/11/2017 Hyperlipidemia; Body Mass Index 30+ - Obesity; Diabetes Mellitus; Pneumococcal Vaccination; Influenza Vaccination; Viral Immunization; Irregular Heart Beat; Essential Hypertension Dino Zavala MD: [address] [place] [phone], Ph. 02/09/2017 Hyperlipidemia; Diabetes Mellitus; Screening for Malignant Neoplasm of Prostate Dino Zavala MD: [address] [place] [phone], Ph. 02/05/2017 Dino Zavala MD: [address] [place] [phone], Ph. 11/12/2016 Hypertensive Disorder; Hyperlipidemia; Diabetes Mellitus Dino Zavala MD: [address] [place] [phone], Ph. 11/11/2016 Hyperlipidemia; Hypertensive Disorder; Diabetes Mellitus; Body Mass Index 30+ - Obesity Dino Zavala MD: [address] [place] [phone], Ph. 08/11/2016 Coronary Arteriosclerosis; Type 2 Diabetes Mellitus; Hypertensive Disorder; Hyperlipidemia; Essential Hypertension Joya Parish MD: [address] [place] [phone], Ph. 05/04/2016 Essential Hypertension; Hyperlipidemia; Type 2 Diabetes Mellitus; Influenza Vaccination Kareem Kam MD: [address] [place] [phone], Ph. 01/24/2016 Type 2 Diabetes Mellitus; Essential Hypertension; Hyperlipidemia Dino Zavala MD: [address] [place] [phone], Ph. Social History Smoking Status Former Smoker (1/2 PPD) Notes: QUIT :1977 Vaccine List Vaccine Type Influenza, injectable, MDCK, quadrivalent 02/11/20170.5 mL influenza, seasonal, injectable 05/04/20160.5 mL influenza, unspecified formulation 06/07/2014 pneumococcal polysaccharide PPV23 06/09/20170.5 mL Tdap 09/06/2015 zoster 06/09/20170.65 mL Plan of Care Patient Instructions continue all meds,diet >exercise f/u front office help continue all meds ,< wgt >exercise f/u front office help rtc 3 months Reminders Provider Appointments None recorded. Lab None recorded. Referral None recorded. Procedures None recorded. Surgeries None recorded. Imaging None recorded. Vitals 09/08/2017 08:00AM Est Patient Height Weight BMI Blood Pressure 5 ft 7 in 277 lbs 43.4 kg/m2 140/72 mm[Hg] 06/09/2017 08:15AM Est Patient Height Weight BMI Blood Pressure 5 ft 7 in 267 lbs 41.8 kg/m2 (1) 150/76 mm[Hg] (2) 150/82 mm[Hg] 03/09/2017 08:00AM Est Patient Height Weight BMI Blood Pressure 5 ft 7 in 255 lbs 39.9 kg/m2 (1) 150/80 mm[Hg] (2) 140/68 mm[Hg] 03/02/2017 04:00PM Est Patient Height Weight Blood Pressure 5 ft 7 in (1) 168/80 mm[Hg] (2) 152/70 mm[Hg] 02/11/2017 01:00PM Est Patient Height Weight BMI Blood Pressure 5 ft 7 in 242 lbs 37.9 kg/m2 (1) 150/70 mm[Hg] (2) 144/70 mm[Hg] 11/11/2016 01:00PM Est Patient Height Weight BMI Blood Pressure 5 ft 7 in 250 lbs 39.2 kg/m2 (1) 152/72 mm[Hg] (2) 138/70 mm[Hg] 08/11/2016 10:45AM Est Patient Height Weight BMI Blood Pressure 5 ft 7 in 235 lbs 36.8 kg/m2 148/73 mm[Hg] 05/04/2016 08:15AM Est Patient Height Weight BMI Blood Pressure 5 ft 7 in 238 lbs 37.3 kg/m2 (1) 155/91 mm[Hg] (2) 166/86 mm[Hg] 01/24/2016 08:30AM Est Patient Height Weight BMI Blood Pressure 5 ft 7 in 270 lbs 42.3 kg/m2 121/58 mm[Hg]
[2019-03-30 12:05] VITALS: BP 151/88
--- NOTE | 2019-03-30 17:23 | Operative Report ---
DATE OF PROCEDURE: SURGEON: Patrick Macias MD PROCEDURE PERFORMED: Colonoscopy. PREOPERATIVE DIAGNOSIS: History of colon polyps. POSTOPERATIVE DIAGNOSIS: Recurrent colon polyps. PREOPERATIVE MEDICATIONS: Consisted of MAC anesthesia. PROCEDURE IN DETAIL: Using an Olympus Q1Media video colonoscope was inserted in the patient's rectum and advanced without difficulty to the level of the cecum. The colon was studied from that level back down to the rectum. The following findings were noted. In the ascending colon was a 1 cm sessile polyp, which was removed with electrical snare cautery. In the transverse colon was an 8 mm sessile polyp, which was removed with electrical snare cautery. In the descending colon, there was a 4 mm size sessile polyp, which was removed with hot biopsy forceps. In the sigmoid colon, there were two 4 mm size sessile polyps which were removed with the hot biopsy forceps. The colonoscope was withdrawn from the patient's rectum. The procedure was ended. Patrick Macias MD SAF/MODL /[id number]
== END | disposition home or self-care (01) ==
LOC: OR 08:22
PROVIDERS: ATTEND Internal Medicine Gastroenterology
DX: Z12.11 Encounter for screening for malignant neoplasm of colon (principal); D12.2 Benign neoplasm of ascending colon; D12.4 Benign neoplasm of descending colon; Z68.43 Body mass index [BMI] 50.0-59.9, adult; Z01.810 Encounter for preprocedural cardiovascular examination; Z01.812 Encounter for preprocedural laboratory examination; E11.9 Type 2 diabetes mellitus without complications; I25.10 Atherosclerotic heart disease of native coronary artery without angina pectoris; I10 Essential (primary) hypertension; E78.5 Hyperlipidemia, unspecified; Z95.5 Presence of coronary angioplasty implant and graft; Z80.1 Family history of malignant neoplasm of trachea, bronchus and lung; Z79.84 Long term (current) use of oral hypoglycemic drugs
CPT/HCPCS: 36415 ×2; 45384; 45385; 82948; 85025; 93005; J2250; J2704; J3010; 45378